=== PATIENT | male | born 1960 | race African-American/Black ===

== ENCOUNTER → 2021-02-19 | Outpatient (CLI) | payer OTHER ==
--- NOTE | 2021-02-19 09:47 | CARD ---
MR#: [id number] Date of Study: 02/19/2021 Ordering Physician: ANAM PATEL, Referring Physician: ANAM PATEL, Tech: Laura Todd [facility] APPROVED REPORT EXAM: Two-dimensional and M-mode echocardiogram with Doppler and color Doppler. Other Information Quality : Technically LimitedHR: 79bpm Rhythm : NSR INDICATION Dyspnea RISK FACTORS Hypertension Obesity Hyperlipidemia Smoking 2D DIMENSIONS RVDd3.5 (2.9-3.5cm)Left Atrium(2D)3.8 (1.6-4.0cm) IVSd0.8 (0.7-1.1cm)Aortic Root(2D)3.7 (2.0-3.7cm) LVDd5.2 (3.9-5.9cm)LVOT Diameter2.8 (1.8-2.4cm) PWd1.2 (0.7-1.1cm)LVDs3.7 (2.5-4.0cm) FS (%) 28.7 %SV70.7 ml LVEF(%)54.8 (>50%) Aortic Valve AoV Peak Kyree.89.4cm/sAoV VTI18.0cm AO Peak GR.3.2mmHgLVOT Peak Kyree.89.1cm/s AO Mean GR.2mmHgAVA (VMAX)6.29cm2 Mitral Valve MV E Jilrnrgc46.7cm/sMV DECEL VLAL869nd MV A Ewaifyuu39.6cm/sE/A Ratio1.1 Pulmonary Valve PV Peak Nxnwbjew70.4cm/s Tricuspid Valve TR P. Iukfjgkk267kf/sTR Peak Gr.16mmHg LEFT VENTRICLE The left ventricle is normal size. There is normal left ventricular wall thickness. The left ventricu lar systolic function is normal and the ejection fraction is within normal range. Estimated ejection fraction 55%. There is normal LV segmental wall motion. The left ventricular diastolic function and f illing is normal for age. RIGHT VENTRICLE The right ventricle is normal size. There is normal right ventricular wall thickness. The right ventr icular systolic function is normal. ATRIA The left atrium size is normal. The right atrium size is normal. The interatrial septum is intact wit h no evidence for an atrial septal defect or patent foramen ovale as noted on 2-D or Doppler imaging. AORTIC VALVE The aortic valve is normal in structure and function. Doppler and Color Flow revealed no significant aortic regurgitation. There is no significant aortic valvular stenosis. MITRAL VALVE The mitral valve is normal in structure and function. There is no evidence of mitral valve prolapse. There is no mitral valve stenosis. Doppler and Color Flow revealed no mitral valve regurgitation note d. TRICUSPID VALVE The tricuspid valve is normal in structure and function. Doppler and Color Flow revealed trace tricus pid regurgitation. PAP 20 mmHg. There is no tricuspid valve stenosis. PULMONIC VALVE Doppler and Color Flow revealed no pulmonic valvular regurgitation. There is no pulmonic valvular fernando nosis. GREAT VESSELS The aortic root is mildly enlarged. The ascending aorta is normal in size. The IVC is normal in size and collapses >50% with inspiration. PERICARDIAL EFFUSION There is no evidence of significant pericardial effusion. Critical Notification Critical Value: No <Conclusion> The left ventricular systolic function is normal and the ejection fraction is within normal range. E stimated ejection fraction 55%. There is normal LV segmental wall motion. Signed by : Raghu Babb, Electronically Approved : 02/19/2021 09:46:27
== END ==
LOC: ECHO 07:47
PROVIDERS: ATTEND Internal Medicine Cardiovascular Disease
DX: R06.00 Dyspnea, unspecified (principal)
CPT/HCPCS: 93306